=== PATIENT | female | born 1990 | race Asian ===

== ENCOUNTER → 2017-01-06 | Outpatient (CLI) | payer OTHER | LOC: LAB 12:27 | PROVIDERS: ATTEND Family Medicine | DX: Z53.9 Procedure and treatment not carried out, unspecified reason (principal) ==

== ENCOUNTER → 2017-01-09 | Outpatient (CLI) | payer OTHER ==
[2017-01-09 21:37] LABS: GC-CHLAMYDIA SOURCE URINE; N.gonorrhoeae SOURCE URINE
== END ==
LOC: LAB 15:35
PROVIDERS: ATTEND Family Medicine
DX: Z00.00 Encounter for general adult medical examination without abnormal findings (principal)
CPT/HCPCS: 36415; 86480; 86592; 87491; 87591

== ENCOUNTER → 2017-01-25 | Outpatient (CLI) | payer OTHER | LOC: LAB 16:03 | PROVIDERS: ATTEND Family Medicine | DX: Z00.00 Encounter for general adult medical examination without abnormal findings (principal) | CPT/HCPCS: 36415; 86735; 86762; 86765; 86787 ==